=== PATIENT | female | born 1960 | race Caucasian/White ===

== ENCOUNTER 2017-02-25 19:04 | Emergency (ER) | payer MEDICAID ==
[2017-02-25 19:04] VITALS: BMI 24.9
[2017-02-25 19:13] VITALS: RESP 16; TEMP 98.3
[2017-02-25] MEDS ORDERED: Albuterol-Ipratrop 3 mg / 0.5 (3 ml) UD IH STA (20:08)
--- NOTE | 2017-02-25 20:26 | ED PDOC ---
Arrival/HPI <Sukhjinder Merlos - Last Filed: 02/25/17 22:01> - General Historian: Patient EM Caveat: Acuity of Condition - History of Present Illness Time/Duration: Other (2 days) Symptom Onset: Sudden Symptom Course: Unchanged Quality: Aching Severity Level: 6 Activities at Onset: Rest, Light Context: Sitting <CECI BLANC - Last Filed: 02/25/17 22:28> - General Chief Complaint: Upper Extremity Problem/Injury Time Seen by Provider: 02/25/17 19:14 - History of Present Illness Narrative History of Present Illness (Text): 02/25/17 20:14 56 years old female with PMH HIV, asthma, CVA with residual left sided weakness , presents for right hand pain x past 3 days. Pt locates it at the right thumb, has associated swelling,; radiation of pain to the right forearm, extending to the elbow area. Pt denies vesicles, erythema, fever, chills, new rashes, sick contacts, trauma, previous HSV infection. Pt also has a productive cough ( yellow sputum), nasal congestion, sob, requiring more advair, headache for past 5 days. Pt does not remember his last CD4 count and viral load. Denies cp, palpitations, urinary symptoms, abdominal pain, diarrhea, constipation. 02/25/17 21:10 02/25/17 22:25 (CECI BLANC) Associated Symptoms (Text): has associated swelling and radiation of pain to the right forearm. 02/25/17 20:27 (CECI BLANC) Past Medical History - Provider Review Nursing Documentation Reviewed: Yes - Infectious Disease Hx of Infectious Diseases: None - Tetanus Immunization Tetanus Immunization: Unknown - Cardiac Hx Cardiac Disorders: No - Pulmonary Hx Respiratory Disorders: Yes Hx Asthma: Yes Hx Bronchitis: Yes Hx Chronic Obstructive Pulmonary Disease (COPD): Yes - Neurological Hx Neurological Disorder: Yes HX Cerebrovascular Accident: Yes - HEENT Hx HEENT Disorder: No - Renal Hx Renal Disorder: No - Endocrine/Metabolic Hx Endocrine Disorders: No - Hematological/Oncological Hx Blood Disorders: Yes Hx Anemia: Yes Other/Comment: HIV - Integumentary Hx Dermatological Disorder: No - Musculoskeletal/Rheumatological Hx Musculoskeletal Disorders: Yes Hx Falls: Yes - Gastrointestinal Hx Gastrointestinal Disorders: No - Genitourinary/Gynecological Hx Genitourinary Disorders: No Other/Comment: + HIV - Psychiatric Hx Psychophysiologic Disorder: No (DENIED) Hx Emotional Abuse: No Hx Physical Abuse: No Hx Substance Use: No - Past Surgical History Past Surgical History: No Previous - Surgical History Other/Comment: PELVIC, R FOOT - Anesthesia Hx Anesthesia: Yes Hx Anesthesia Reactions: No Hx Malignant Hyperthermia: No - Suicidal Assessment Feels Threatened In Home Enviroment: No <CECI BLANC - Last Filed: 02/25/17 22:28> Family/Social History - Physician Review Nursing Documentation Reviewed: Yes Family/Social History: No Known Family HX Smoking Status: Current Some Days Smoker Hx Alcohol Use: Yes Frequency of alcohol use: Socially Hx Substance Use: No Substance used: Cocaine QUIT Hx Substance Use Treatment: No <CECI BLANC - Last Filed: 02/25/17 22:28> Allergies/Home Meds <Sukhjinder Merlos - Last Filed: 02/25/17 22:01> <CECI BLANC - Last Filed: 02/25/17 22:28> Allergies/Adverse Reactions: Allergies No Known Allergies Allergy (Verified 02/25/17 19:13) Home Medications: Home Meds Medication Instructions Recorded Confirmed Albuterol HFA [Ventolin HFA 90 2 puff IH PRN PRN 04/16/16 02/25/17 mcg/actuation (8 g)] Aspirin [Aspirin EC] 325 mg PO DAILY 04/16/16 02/25/17 Fluticasone/Salmeterol 250/50 2 puff IH PRN PRN 04/16/16 02/25/17 [Advair Diskus] Elviteg/Viviane/Emtric/Tenofo Dis 1 tab PO DAILY 02/25/17 02/25/17 [Stribild Tablet] Review of Systems - Physician Review All systems were reviewed & negative as marked: Yes - Review of Systems Constitutional: Normal. absent: Fatigue, Fevers Eyes: absent: Vision Changes, Eye Pain ENT: Sore Throat. absent: Hearing Changes, Tinnitus, Sinus Congestion Respiratory: SOB, Cough, Sputum, Wheezing Cardiovascular: absent: Chest Pain, Palpitations, Calf Pain Gastrointestinal: absent: Abdominal Pain, Diarrhea, Nausea, Vomiting Genitourinary Female: absent: Dysuria, Frequency, Hematuria, Vaginal Discharge Musculoskeletal: absent: Back Pain Skin: absent: Rash, Skin Lesions Neurological: Headache. absent: Speech Changes <GUANAOCCECI - Last Filed: 02/25/17 22:28> Physical Exam Vital Signs Reviewed: Yes Temperature: Afebrile Blood Pressure: Normal Pulse: Tachycardic Respiratory Rate: Normal Appearance: Positive for: Well-Appearing, Uncomfortable Pain Distress: Mild Mental Status: Positive for: Alert and Oriented X 3 - Systems Exam Head: Present: Atraumatic, Normocephalic Pupils: Present: PERRL Extroacular Muscles: Present: EOMI Conjunctiva: Present: Normal Mouth: Present: Moist Mucous Membranes Pharnyx: Present: ERYTHEMA, Peritonsilar Swelling. No: TONSILS ENLARGED Respiratory/Chest: Present: Wheezes. No: Respiratory Distress, Accessory Muscle Use Cardiovascular: Present: Normal S1, S2, Tachycardic. No: Murmurs Abdomen: Present: Normal Bowel Sounds. No: Tenderness Back: No: CVA Tenderness Upper Extremity: Present: Tenderness, Swelling, Other (right thumb swelling, extends to thenar eminence, no erythema. TTP to thumb. No vesicles.) Lower Extremity: Present: Normal Inspection, NORMAL PULSES. No: CALF TENDERNESS Neurological: Present: GCS=15 Skin: Present: Warm, Dry Psychiatric: Present: Alert, Oriented x 3 <GUANACOCECI - Last Filed: 02/25/17 22:28> Vital Signs Temp Pulse Resp BP Pulse Ox 02/25/17 19:09 98.3 F 105 H 16 123/88 95 Medical Decision Making <Sukhjinder Merlos - Last Filed: 02/25/17 22:01> <CECI BLANC - Last Filed: 02/25/17 22:28> ED Course and Treatment: Impression: Pt seen and evaluated with medical tech. Pt, whose past medical history includes HIV, CVA, dysarthria, gait imbalance, and asthma, presented for right hand/thumb pain with swelling. Also complaining of productive cough, nasal congestion, and shortness of breath. Aware and agree with HPI, clinical findings , plan, and management. 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 / has examined the patient and agrees with the treatment plan. <Sukhjinder Merlos - Last Filed: 02/25/17 22:01> Disposition/Present on Arrival <Sukhjinder Merlos - Last Filed: 02/25/17 22:01> - Present on Arrival Any Indicators Present on Arrival: No History of DVT/PE: No History of Uncontrolled Diabetes: No Urinary Catheter: No History of Decub. Ulcer: No History Surgical Site Infection Following: None - Disposition Have Diagnosis and Disposition been Completed?: Yes Disposition Time: 20:00 Patient Plan: Discharge <CECI BLANC - Last Filed: 02/25/17 22:28> - Disposition Diagnosis: Herpetic nioclas, Bronchitis Disposition: HOME/ ROUTINE Condition: IMPROVED Discharge Instructions (ExitCare): Acute Bronchitis (ED) Print Language: MOHAWK Additional Instructions: - Pt to be discharge home on antibiotics (Z-pack) and tessalon Perles. - Pt advised to use rescue inhaler (albuterol) at home when wheezing occurs. - Pt can take Mortin for pain in right hand. - F/u with MD Dr Berrios in 3-4 days. - If symptoms worsen, please return back to ER. Prescriptions: Azithromycin [Zithromax Tri-Rodolfo] 500 mg PO DAILY #3 tablet Benzonatate [Tessalon Perles] 100 mg PO Q8H PRN #14 sgl PRN Reason: Cough Forms: [employer] ([place])
[2017-02-26 06:55] VITALS: BP 125/78; PULSE 89; O2SAT 97
== END 2017-02-25 21:22 | disposition home or self-care (01) ==
LOC: ED 19:04
DX: J40 Bronchitis, not specified as acute or chronic (principal); B00.89 Other herpesviral infection; F17.200 Nicotine dependence, unspecified, uncomplicated; J44.9 Chronic obstructive pulmonary disease, unspecified

== ENCOUNTER 2018-07-11 17:40 | Emergency (ER) | payer MEDICAID ==
[2018-07-11 17:40] VITALS: BMI 24.9
[2018-07-11] MEDS ORDERED: TDAP Vaccine 0.5 mL Syr IM ONE (17:56)
[2018-07-11 18:09] VITALS: TEMP 97.7
[2018-07-11 18:17] LABS: BASO # 0.02 K/mm3 (0.0-2.0); BASO % 0.4 % (0.0-3.0); EOS # 0.1 (0.0-0.7); EOS % 0.9 % (1.5-5.0); HEMOGLOBIN 13.1 g/dL (12.0-16.0); LYMPH # 2.8 (1.2-3.4); LYMPH % 52.8 % (22.0-35.0); MEAN CELL VOLUME 84.9 fl (80.0-105.0); MEAN CORPUSCULAR HEMOGLOBIN 27.4 pg (25.0-35.0); MEAN CORPUSCULAR HGB CONC 32.3 g/dl (31.0-37.0); MEAN PLATELET VOLUME 8.5 fl (7.0-11.0); MONO # 0.5 (0.1-0.6); MONO % 9.5 % (1.0-6.0); RBC 4.78 10^6/uL (3.5-6.1); RED CELL DISTRIBUTION WIDTH 13.5 % (11.5-14.5); WHITE BLOOD COUNT 5.3 10^3/uL (4.5-11.0)
--- NOTE | 2018-07-11 18:17 | ED PDOC ---
Arrival/HPI - General Chief Complaint: Trauma Time Seen by Provider: 07/11/18 17:44 Historian: Patient, Family - History of Present Illness Narrative History of Present Illness (Text): 07/11/18 18:14 58yr old female presents today brought in by ambulance for alcohol use and fall. pt states she fell hitting her head. Per EMS this was a witnessed fall. pt is unsure of LOC. pt admits to drinking alcohol today. pt denies headache. denies blurred vision. denies neck or back pain. no cp or sob. pt denies abdominal pain. denies pain in the extremities. per patients , he left the patient sitting down and went to bring food upstairs and when he came back down he saw 3 people around the patient on the ground. 07/11/18 18:54 patients daughter now at bedside; states the patient drinks frequently. pt had hx of CVA with residual slurred speech. Past Medical History - Provider Review Nursing Documentation Reviewed: Yes - Travel History Have you recently traveled outside [place] w/in the past 3 mons?: No - Infectious Disease Hx of Infectious Diseases: None - Tetanus Immunization Tetanus Immunization: Unknown - Reproductive Menopause: Yes - Cardiac Hx Cardiac Disorders: No - Pulmonary Hx Respiratory Disorders: Yes Hx Asthma: Yes Hx Bronchitis: Yes Hx Chronic Obstructive Pulmonary Disease (COPD): Yes - Neurological Hx Neurological Disorder: Yes HX Cerebrovascular Accident: Yes - HEENT Hx HEENT Disorder: No - Renal Hx Renal Disorder: No - Endocrine/Metabolic Hx Endocrine Disorders: No - Hematological/Oncological Hx Blood Disorders: Yes Hx Anemia: Yes Other/Comment: HIV - Integumentary Hx Dermatological Disorder: No - Musculoskeletal/Rheumatological Hx Musculoskeletal Disorders: Yes Hx Falls: Yes - Gastrointestinal Hx Gastrointestinal Disorders: No - Genitourinary/Gynecological Hx Genitourinary Disorders: No Other/Comment: + HIV - Psychiatric Hx Psychophysiologic Disorder: No (DENIED) Hx Substance Use: No - Past Surgical History Past Surgical History: No Previous - Surgical History Other/Comment: PELVIC, R FOOT - Anesthesia Hx Anesthesia: Yes Hx Anesthesia Reactions: No Hx Malignant Hyperthermia: No - Suicidal Assessment Feels Threatened In Home Enviroment: No Family/Social History - Physician Review Nursing Documentation Reviewed: Yes Family/Social History: Unknown Family HX Smoking Status: Current Some Days Smoker Hx Alcohol Use: Yes Hx Substance Use: No Substance used: Cocaine QUIT Hx Substance Use Treatment: No Allergies/Home Meds Allergies/Adverse Reactions: Allergies No Known Allergies Allergy (Verified 02/25/17 19:13) Home Medications: Home Meds Medication Instructions Recorded Confirmed Albuterol HFA [Ventolin HFA 90 2 puff IH PRN PRN 04/16/16 02/25/17 mcg/actuation (8 g)] Aspirin [Aspirin EC] 325 mg PO DAILY 04/16/16 02/25/17 Fluticasone/Salmeterol 250/50 2 puff IH PRN PRN 04/16/16 02/25/17 [Advair Diskus] Elviteg/Viviane/Emtric/Tenofo Dis 1 tab PO DAILY 02/25/17 02/25/17 [Stribild Tablet] Review of Systems - Review of Systems Constitutional: absent: Fevers Eyes: absent: Vision Changes Respiratory: absent: SOB, Cough Cardiovascular: absent: Chest Pain, Palpitations Gastrointestinal: absent: Abdominal Pain, Nausea, Vomiting Genitourinary Female: absent: Dysuria Musculoskeletal: absent: Arthralgias, Back Pain, Neck Pain Skin: Other (abrasion) Neurological: absent: Headache, Dizziness Psychiatric: absent: Depression, Suicidal Ideation Physical Exam Vital Signs Reviewed: Yes Vital Signs Temp Pulse Resp BP Pulse Ox 07/11/18 17:48 97.7 F 94 H 18 144/82 100 Temperature: Afebrile Blood Pressure: Normal Pulse: Regular Respiratory Rate: Normal Appearance: Positive for: Well-Appearing, Non-Toxic, Comfortable Pain Distress: None Mental Status: Positive for: other (alert, intoxicated. ) - Systems Exam Head: Present: Contusion, Swelling (large hematoma noted to left forehead just superior to left eye; + abrasions noted; no active bleeding. ), Abrasion Pupils: Present: PERRL Extroacular Muscles: Present: EOMI Conjunctiva: Present: Normal Ears: Present: Normal Mouth: Present: Moist Mucous Membranes, Other (dentures in place.) Pharnyx: Present: Normal Nose (External): Present: Atraumatic. No: Abrasion, Contusion, Laceration Nose (Internal): Present: Normal Inspection, Moist. No: Septal Hematoma Neck: Present: Normal Range of Motion. No: MIDLINE TENDERNESS, Paraspinal Tenderness Respiratory/Chest: Present: Clear to Auscultation, Good Air Exchange. No: Respiratory Distress, Accessory Muscle Use, Tender to Palpation Cardiovascular: Present: Regular Rate and Rhythm Abdomen: Present: Other (no ecchymosis, no edema). No: Tenderness, Distention, Rebound, Guarding Back: Present: Normal Inspection, Other (no ecchymosis, no edema, no erythema; non tender.). No: CVA Tenderness, Midline Tenderness, Paraspinal Tenderness Upper Extremity: Present: Normal Inspection, Normal ROM, NORMAL PULSES, Neur ovascularly Intact, Capillary Refill < 2s. No: Tenderness, Swelling, Erythema Lower Extremity: Present: Normal Inspection, NORMAL PULSES, Normal ROM, Capillary Refill < 2 s. No: CALF TENDERNESS, Tenderness, Swelling Neurological: Present: GCS=15 Skin: Present: Warm, Dry, Normal Color Psychiatric: Present: Alert, Intoxicated Medical Decision Making ED Course and Treatment: 07/11/18 18:20 58yr old female with Hx of HIV with fall after drinking alcohol today. pt denies pain. cbc wnl cmp wnl pt wnl inr wnl ptt wnl ekg; NSr at 70b/m no st elevations cxr; wnl head ct; FINDINGS: BRAIN No acute intraparenchymal hemorrhage. No mass lesion. No CT evidence for acute territorial infarct. No midline shift or extra-axial collections. There is asymmetrical left cerebellar atrophy noted with post ischemic infarction encephalomalacia of the left cerebellar hemisphere. VENTRICLES: No hydrocephalus. ORBITS: The orbits are unremarkable. SINUSES AND MASTOIDS: The paranasal sinuses and mastoid air cells are clear. BONES: No fracture. SOFT TISSUES: There is moderate left superolateral periorbital soft tissue hematoma and swelling noted. IMPRESSION: 1. No acute intracranial abnormality. 2. Left superolateral periorbital soft tissue swelling and hematoma. 3. Asymmetrical left cerebellar atrophy and post ischemic infarction and encephalomalacia. Electronically signed on Jul 11, 2018 8:35:50 PM EDT by: Jeff Frias M.D., RICKY Certified By ABR & CBC[employer] Fellowship Trained MRI and CT Specialist maxillofacial Ct: FINDINGS: BONES: No acute fracture or aggressive appearing osseous lesion. The mandible is intact. 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 SOFT TISSUES: Moderate left superolateral periorbital soft tissue swelling and hematoma are identified. Incidental note is made of a left nasal metallic piercing. SINUSES: A 1.1 x 0.4 cm small mucous retention cyst or polyp is noted in the inferior left maxillary sinus. The remaining sinuses are clear. ORBITS: The orbits are normal. No retrobulbar hematoma or mass. IMPRESSION: 1. Moderate sized left superolateral periorbital hematoma and soft tissue swelling. 2. 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 3. A 1.1 cm mucous retention cyst or polyp is noted in the inferior left maxillary sinus. Electronically signed on Jul 11, 2018 9:01:14 PM EDT by: Jeff Frias M.D., RICKY Certified By ABR & CBC[employer] Fellowship Trained MRI and CT Specialist cervical ct; FINDINGS: ALIGNMENT: Bony alignment is anatomic. DEGENERATIVE CHANGES: No significant canal stenosis or neural foraminal narrowing evident. SOFT TISSUES: The prevertebral soft tissues are within normal limits. BONES: No acute fracture or aggressive appearing osseous lesion. IMPRESSION: No acute cervical spine abnormality. Electronically signed on Jul 11, 2018 9:01:27 PM EDT by: Jeff Frias M.D., RICKY Certified By ABR & [employer] Fellowship Trained MRI and CT Specialist tetanus updated. 07/11/18 18:56 pts daughter at bedside; states patient has hx of CVA with hx of slurred speech; states pt drinks frequently and has had previous falls due to drinking. 07/11/18 20:19 pt is requesting an albuterol treatment; pt denies chest pain. states she u sually needs to take her albuterol frequently. Lungs CTA bilaterally. wounds cleaned and irrigated. bacitracin applied. 07/11/18 21:20 Patient reassessment: Patient is nontoxic well-appearing no distress with stable vital signs. Patient wants to go home. I spoke with the patient's daughter she will take the patient home into her care. All results discussed with the patient and her daughter in depth. Patient discharged into the care of her daughter. all aspects of the case discussed with the attending of record. Impression: head injury, abrasion, forehead, hematoma forehead, Keep wounds clean and dry Apply bacitracin twice daily Follow-up with the primary care physician within the next 2 days Return immediately if signs of infection develop: High fevers, increasing pain, increasing redness, increasing swelling, purulent discharge Return immediately if symptoms worsen persist or if new concerning symptoms develop 07/11/18 21:27 Reassessment Condition: Re-examined, Improved - RAD Interpretation Radiology Orders: 07/11/18 17:54 CERVICAL SPINE W/O CONTRAST [CT] Stat HEAD W/O CONTRAST [CT] Stat MAXILLOFACIAL W/O CONTRAST [CT] Stat 07/11/18 17:55 CHEST PORTABLE [RAD] Stat - Medication Orders Current Medication Orders: Discontinued Medications Tetanus/Reduced Diphtheria/Acell Pertussis (Boostrix Vaccine Inj) 0.5 ml IM .ONCE ONE Stop: 07/11/18 17:57 Last Admin: 07/11/18 18:11 Dose: 0.5 ml Immunization Registry Document 07/11/18 18:11 BRANDON (Rec: 07/11/18 18:12 BRANDON [id number]) [facility]-Date provided 07/11/18 Disposition/Present on Arrival - Present on Arrival Any Indicators Present on Arrival: No History of DVT/PE: No History of Uncontrolled Diabetes: No Urinary Catheter: No History of Decub. Ulcer: No History Surgical Site Infection Following: None - Disposition Have Diagnosis and Disposition been Completed?: Yes Diagnosis: Abrasion of forehead, Traumatic hematoma of forehead, Head injury, Alcohol use Disposition: HOME/ ROUTINE Disposition Time: 21:22 Patient Plan: Discharge Condition: GOOD Discharge Instructions (ExitCare): Skin Abrasions (DC), Closed Head Injury, Alcohol Use - When Is Drinking a Problem? Additional Instructions: Keep wounds clean and dry Apply bacitracin twice daily Follow-up with the primary care physician within the next 2 days Return immediately if signs of infection develop: High fevers, increasing pain, increasing redness, increasing swelling, purulent discharge Return immediately if symptoms worsen persist or if new concerning symptoms develop Referrals: Donna Falcon MD [Medical Doctor] - Follow up with primary [facility] [Outside] - Follow up with primary Forms: [employer] (E[place]ian)
[2018-07-11 18:24] LABS: INR 0.98; PARTIAL THROMBOPLASTIN TIME 32.5 Seconds (26.9-38.3); PROTHROMBIN TIME 10.9 SECONDS (9.4-12.5)
[2018-07-11 18:26] LABS: ALB/GLOB RATIO 0.8 (1.1-1.8); ALBUMIN 4.4 g/dL (3.0-4.8); BLOOD UREA NITROGEN 11 mg/dL (7-21); CALCIUM 9.3 mg/dL (8.4-10.5); GFR NON-AFRICAN AMERICAN > 60
[2018-07-11 18:27] LABS: ALT/SGPT 51 U/L (7-56); AST/SGOT 83 U/L (14-36)
[2018-07-11 20:11] VITALS: BP 115/66; PULSE 88; RESP 16; O2SAT 97
[2018-07-11] MEDS ORDERED: Albuterol 0.083% Inhal Sol (2.5 mg/3 mL) UD IH STA (20:19)
[2018-07-11] MEDS ORDERED: Bacitracin 500 Units/gm Oint Foilpak UD ONE (21:41)
[2018-07-11] MEDS ORDERED: Bacitracin 500 Units/gm Oint Foilpak UD TOP ONE (22:34)
--- NOTE | 2018-07-12 08:26 | CT ---
Date of service: 07/11/2018 PROCEDURE: CT HEAD WITHOUT CONTRAST. HISTORY: Fall, head injury COMPARISON: Comparison made with prior study dated 12/27/2014. TECHNIQUE: Axial computed tomography images were obtained through the head/brain without intravenous contrast. Radiation dose: Total exam DLP = 825.3 mGy-cm. This CT exam was performed using one or more of the following dose reduction techniques: Automated exposure control, adjustment of the mA and/or kV according to patient size, and/or use of iterative reconstruction technique. FINDINGS: HEMORRHAGE: No intracranial hemorrhage. BRAIN: Redemonstrated are encephalomalacia changes cerebellar hemisphere with enlargement of the posterior fossa subarachnoid spaces. Mild-moderate diffuse/confluent chronic periventricular ischemic changes are again seen extending peripherally into the deep white matter both cerebral hemispheres. There is also some extension of these changes into the white matter tracts both basal nuclei. Moderate generalized volume loss. VENTRICLES: No obstructive hydrocephalus. CALVARIUM: There are no acute calvarial fractures. Moderately large left frontotemporal and supraorbital and lateral periorbital scalp contusion PARANASAL SINUSES: Unremarkable as visualized. No significant inflammatory changes. MASTOID AIR CELLS: Unremarkable as visualized. No inflammatory changes. OTHER FINDINGS: None. IMPRESSION: encephalomalacia changes cerebellar hemisphere with enlargement of the posterior fossa subarachnoid spaces. Mild-moderate diffuse/confluent chronic periventricular ischemic changes are again seen extending peripherally into the deep white matter both cerebral hemispheres. There is also some extension of these changes into the white matter tracts both basal nuclei. Moderate generalized volume loss Large left frontotemporal and supraorbital/lateral periorbital scalp contusion
--- NOTE | 2018-07-12 08:36 | CT ---
Date of service: 07/11/2018 PROCEDURE: CT MAXILLOFACIAL BONES WITHOUT CONTRAST HISTORY: Fall, hematoma left forehead/superior orbit COMPARISON: Comparison made with concurrent CT scan brain TECHNIQUE: Contiguous axial CT images of the maxillofacial bones were obtained. Coronal and sagittal reformats were generated. Radiation dose: Total exam DLP = 730.88 mGy-cm. This CT exam was performed using one or more of the following dose reduction techniques: Automated exposure control, adjustment of the mA and/or kV according to patient size, and/or use of iterative reconstruction technique. FINDINGS: NASAL BONES: Unremarkable. Nasal bones appear intact. There is mild minor leftward deviation of the nasal septum associated with a left-sided septal bone spur. ORBITS: Redemonstrated is a large left supraorbital, left lateral periorbital and left side frontal temporal scalp contusion.. Old fracture deformity left lamina papyracea PARANASAL SINUSES/ MASTOIDS: There is mild mucosal thickening inferior aspect left maxillary antrum. Minimal mucosal thickening in at least 1 right-sided ethmoid air cell. MAXILLA: All the maxillary teeth are absent with in situ upper denture. MANDIBLE/ TEMPOROMANDIBULAR JOINTS: Unremarkable. SKULL BASE: Unremarkable. TEMPORAL BONES: Middle ears and mastoid grossly unremarkable. OTHER FINDINGS: In situ left sided nasal ring. IMPRESSION: Large left supraorbital/left lateral periorbital and left frontotemporal scalp contusion. Old fracture deformity left lamina papyracea. Minor mucosal thickening floor left maxillary antrum. Minimal mucosal thickening in at least 1 right-sided ethmoid air cell
--- NOTE | 2018-07-12 08:42 | CT ---
Date of service: 07/11/2018 PROCEDURE: CT Cervical Spine without contrast HISTORY: Fall COMPARISON: None available. TECHNIQUE: Axial computed tomography images were obtained of the cervical spine without the use of intravenous contrast. Coronal and sagittal reformatted images were created and reviewed. Radiation dose: Total exam DLP = 491.48 mGy-cm. This CT exam was performed using one or more of the following dose reduction techniques: Automated exposure control, adjustment of the mA and/or kV according to patient size, and/or use of iterative reconstruction technique. FINDINGS: VERTEBRAE: No acute compression fractures no retropulsed fragments. Vertebral bodies exhibit normal stature. Mild reversal of the normal cervical lordosis likely due to patient positioning gantry however underlying element of muscle spasm may contribute. Vertebral bodies and facets otherwise exhibit normal alignment. DISCS/SPINAL CANAL/NEURAL FORAMINA: Disc space heights are relatively greater did the. No disc herniation or significant disc bulge.. Mild to moderate left-sided facet arthropathy seen at the C3-C4 level with small amount of vacuum facet phenomenon. The uncovertebral joints exhibit slight degenerative squaring with left-sided foraminal stenosis.. The overall central bony canal and exit foramina appear adequate. PARASPINAL SOFT TISSUES: Unremarkable. OTHER FINDINGS: There there are moderate centrilobular emphysematous changes in the lung apices and upper lobes. IMPRESSION: No acute fractures. Degenerative facet arthropathy C3-C4 level with left-sided foraminal stenosis as above Moderate centrilobular emphysematous changes
--- NOTE | 2018-07-12 09:43 | RAD ---
Date of service: 07/11/2018 HISTORY: etoh, fall COMPARISON: 03/12/2016 FINDINGS: LUNGS: No active pulmonary disease. PLEURA: No significant pleural effusion identified, no pneumothorax apparent. CARDIOVASCULAR: No aortic atherosclerotic calcification present. Normal cardiac size. No pulmonary vascular congestion. OSSEOUS STRUCTURES: No significant abnormalities. VISUALIZED UPPER ABDOMEN: Normal. OTHER FINDINGS: None. IMPRESSION: No active disease.
--- NOTE | 2018-07-12 09:57 | CARD ---
APPROVED REPORT Date of service: 07/11/2018 EKG Measurement Heart [id number] <Conclusion> Normal sinus rhythm Normal ECG
== END 2018-07-11 21:50 | disposition home or self-care (01) ==
LOC: ED 17:40
DX: S00.83XA Contusion of other part of head, initial encounter (principal); W19.XXXA Unspecified fall, initial encounter; F10.10 Alcohol abuse, uncomplicated; Y90.8 Blood alcohol level of 240 mg/100 ml or more; J44.9 Chronic obstructive pulmonary disease, unspecified; Z86.73 Personal history of transient ischemic attack (TIA), and cerebral infarction without residual deficits; F17.210 Nicotine dependence, cigarettes, uncomplicated; Z23 Encounter for immunization